=== PATIENT | female | born 1970 | race African-American/Black ===

== ENCOUNTER 2024-06-18 03:58 | Emergency (ER) | payer MEDICAID ==
[~2024-06-18] VITALS: Ht 160 cm; Wt 73.0 kg
[2024-06-18 04:01] VITALS: O2SAT 100
[2024-06-18] MEDS: SODIUM CHLORIDE 0.9% 1,000 ML IV ONE (05:36)
[2024-06-18] MEDS: ACETAMINOPHEN 325MG TABLET PO ONE (05:36)
[2024-06-18 05:40] LABS: BASOPHILS % 0.4 % (0.0-2.0); EOSINOPHILS % 1.5 % (0.0-5.0); HEMATOCRIT. 33.2 % (36.0-48.0); HEMOGLOBIN. 10.9 g/dL (12.0-16.0); LYMPHOCYTES % 51.6 % (20.0-50.0); MEAN CORPUSCULAR HGB CONC 32.9 g/dL (31.0-37.0); MEAN CORPUSCULAR VOLUME 88.2 fL (81.0-99.0); MEAN PLATELET VOLUME 10.2 fl (7.4-10.4); MONOCYTES % 8.8 % (2.0-8.0); NEUTROPHILS % 37.7 % (40.0-76.0); PLATELET 278 x1000/uL (130-400); RED BLOOD CELL COUNT 3.76 mill/uL (4.2-5.4); RED CELL DISTRIBUTION WIDTH 13.4 % (11.6-14.6); WHITE BLOOD COUNT 5.5 x1000/uL (4.5-11.0)
[2024-06-18 05:44] LABS: CHLORIDE 102 mEq/L (98-107); POTASSIUM 3.7 mEq/L (3.5-5.1); SODIUM 134 mEq/L (136-145)
[2024-06-18 05:45] LABS: CALCIUM 9.3 mg/dL (8.7-10.4); CARBON DIOXIDE 27 mEq/L (21-32)
[2024-06-18 05:50] LABS: CREATININE 1.2 mg/dL (0.6-1.0); GLUCOSE 322 mg/dL (70-105); UREA NITROGEN BLOOD 17 mg/dL (9-23)
[2024-06-18 05:52] LABS: BETA HYDROXYBUTYRATE 0.1 mMol/L (0.0-0.3)
[2024-06-18 05:54] LABS: TROPONIN I HIGH SENSITIVITY < 4 ng/L (3.0-34)
[2024-06-18 05:55] LABS: ETHANOL BLOOD < 10 mg/dL (<10)
[2024-06-18 05:56] LABS: INR 0.9; PARTIAL THROMBOPLASTIN TIME 24.4 sec (23.4-31.0); PROTHROMBIN TIME 9.7 sec (9.6-11.0)
[2024-06-18] MEDS: MORPHINE SULFATE 4 MG/ML INJ (FOR IV/IM USE) IV ONE (07:00)
[2024-06-18] MEDS: METOCLOPRAMIDE HCL 10MG/2ML VIAL IV ONE (07:01)
[2024-06-18] MEDS: DIPHENHYDRAMINE 50MG/ML VIAL IV ONE (07:01)
[2024-06-18 07:30] LABS: CLARITY URINE CLEAR (CLEAR); COLOR URINE YELLOW (YELLOW); GLUCOSE URINE 3+ (NEGATIVE); KETONES URINE NEGATIVE (NEGATIVE); LEUKOCYTE ESTERASE URINE NEGATIVE (NEGATIVE); NITRITE URINE NEGATIVE (NEGATIVE); OCCULT BLOOD URINE 3+ (NEGATIVE); PH URINE 5.5 (4.5-8.0); PROTEIN URINE 1+ (NEGATIVE); SPECIFIC GRAVITY URINE 1.024 (1.005-1.030)
[2024-06-18 07:58] LABS: *AMPHETAMINES SCREEN URINE NEGATIVE (NEGATIVE); *BARBITURATES SCREEN URINE NEGATIVE (NEGATIVE); *BENZODIAZEPINES SCREEN URINE NEGATIVE (NEGATIVE); *COCAINE SCREEN URINE NEGATIVE (NEGATIVE); METHADONE URINE SCREEN NEGATIVE (NEGATIVE); OPIATES URINE SCREEN NEGATIVE (NEGATIVE)
[2024-06-18 07:59] LABS: CANNABINOID URINE SCREEN NEGATIVE (NEGATIVE); ECSTASY MDMA SCREEN URINE NEGATIVE (NEGATIVE); PHENCYCLIDINE URINE SCREEN NEGATIVE (NEGATIVE)
[2024-06-18 08:01] LABS: BACTERIA URINE 1+; RBC URINE 50-100 /hpf (0-2); SQUAMOUS EPITHELIAL CELL URINE FEW /lpf (RARE/1+); WBC URINE 0-2 /hpf (0-2); YEAST URINE NONE SEEN
[2024-06-18 08:47] LABS: TROPONIN I HIGH SENSITIVITY < 4 ng/L (3.0-34)
[2024-06-18 09:20] VITALS: BP 146/72; PULSE 80; RESP 14; TEMP 98.3
== END 2024-06-18 09:41 | disposition home or self-care (01) ==
LOC: ER 03:58
DX: E11.65 Type 2 diabetes mellitus with hyperglycemia (principal); R07.89 Other chest pain; Z88.8 Allergy status to other drugs, medicaments and biological substances
CPT/HCPCS: 80305; 80048; 81003; 82010; 80320; 83880; 85025; 85610; 85730; 84484; 36415; 71045; 93005; 96361; 96374; 96375; 99285; J1200; J2765; J2270; J7030; Z7610; G0480